=== PATIENT | male | born 1995 | race Caucasian/White ===

== ENCOUNTER → 2019-10-25 | Outpatient (CLI) | payer OTHER ==
--- NOTE | 2019-10-25 12:21 | RADIOLOGY REPORT (SQ) ---
EXAM DESCRIPTION: [facility] DUPLEX ART/MARY FLOW COMPLETED DATE/TIME: 10/25/2019 10:09 am REASON FOR STUDY: (I70.1)ATHEROSCLEROSIS OF RENAL ARTERY I70.1 ATHEROSCLEROSIS OF RENAL ARTERY COMPARISON: None. TECHNIQUE: Realtime and static grayscale images acquired. Selected color Doppler, velocities and spe ctral images recorded. LIMITATIONS: Midline bowel gas, limited visualization of the right mid 3rd renal artery FINDINGS: RIGHT KIDNEY: RENAL ARTERY VELOCITIES: Proximal 152 cm/sec. Segmental artery velocity 21 cm/sec. RENAL VEIN: Color doppler flow present, patent. VELOCITY RATIO: Normal. Normal waveforms. KIDNEY: 12 cm in length. No significant pathology. LEFT KIDNEY: RENAL ARTERY VELOCITIES: Proximal 260 cm/sec. Segmental artery velocity 56 cm/sec. RENAL VEIN: Color doppler flow present, patent. VELOCITY RATIO: Normal. Normal waveforms. KIDNEY: 11.1 cm in length No significant pathology. BLADDER: Decompressed, not well seen OTHER: No other significant finding. IMPRESSION: NO DOPPLER EVIDENCE OF HEMODYNAMICALLY SIGNIFICANT RENAL ARTERY STENOSIS. COMMENT: NORMAL RENAL ARTERY/AORTA VELOCITY RATIO IS LESS THAN OR EQUAL TO 3.5. TECHNICAL DOCUMENTATION: JOB ID: [id number] 2010 [employer]- All Rights Reserved Reading location - IP/workstation name: [email or web address]
== END ==
LOC: RAD 08:58
PROVIDERS: ATTEND Obstetrics & Gynecology
DX: I70.1 Atherosclerosis of renal artery (principal)
CPT/HCPCS: 93976